=== PATIENT | female | born 1990 | race Hispanic/Latino ===

== ENCOUNTER 2024-03-09 15:02 | Day surgery (SDC) | payer OTHER ==
[2024-03-09 15:30] VITALS: BMI 31.7
[2024-03-09] MEDS ORDERED: hydrALAZINE 20 MG/ML VIAL SLOW IVP PRN (15:41)
== END 2024-03-09 18:00 | disposition home or self-care (01) ==
LOC: CSHLD/OP 15:02
PROVIDERS: ATTEND Family Medicine
DX: O36.8130 Decreased fetal movements, third trimester, not applicable or unspecified (principal); O09.43 Supervision of pregnancy with grand multiparity, third trimester; Z3A.32 32 weeks gestation of pregnancy; Z91.041 Radiographic dye allergy status; Z79.899 Other long term (current) drug therapy
CPT/HCPCS: 59025; 76819; 99282